=== PATIENT | male | born 1955 | race African-American/Black ===

== ENCOUNTER 2022-06-27 02:35 | Inpatient (IN) | payer OTHER ==
[~2022-06-27] VITALS: Ht 193 cm; Wt 123.8 kg
[2022-06-27 06:27] LABS: BASOPHILS % 0.7 % (0.0-2.0); EOSINOPHILS % 1.3 % (0.0-5.0); HEMOGLOBIN. 10.8 g/dL (14.0-18.0); LYMPHOCYTES % 20.4 % (20.0-50.0); MEAN CORPUSCULAR HEMOGLOBIN 34.3 pg (28.0-32.0); MEAN CORPUSCULAR VOLUME 101.3 fL (80.0-94.0); MEAN PLATELET VOLUME 9.9 fl (7.4-10.4); MONOCYTES % 11.2 % (2.0-8.0); NEUTROPHILS % 66.4 % (40.0-76.0); PLATELET 311 x1000/uL (130-400); RED BLOOD CELL COUNT 3.16 mill/uL (4.7-6.1); RED CELL DISTRIBUTION WIDTH 15.9 % (11.6-14.6)
[2022-06-27 06:37] LABS: PROTHROMBIN TIME 11.1 sec (9.6-11.0)
[2022-06-27] MEDS ORDERED: DESMOPRESSIN ACETATE 4MCG/ML AMP IV ONE (09:45)
[2022-06-27] MEDS ORDERED: DESMOPRESSIN ACETATE 20 MCG in SODIUM CHLORIDE 0.9% 50 ML IV NR ×2 (09:45→16:30)
[2022-06-27 12:00] VITALS: BP 120/74
[2022-06-27] MEDS ORDERED: NITROGLYCERIN 0.4MG TABLET SL SL PRN (13:15)
[2022-06-27] MEDS ORDERED: GUAIFENESIN 200MG/10ML SUGAR FREE UDC PO PRN (13:15)
[2022-06-27] MEDS ORDERED: CLONIDINE 0.1MG TABLET PO PRN (13:15)
[2022-06-27] MEDS ORDERED: ACETAMINOPHEN 325MG TABLET PO PRN ×2 (13:15)
[2022-06-27] MEDS ORDERED: MAGNESIUM/ALUMINUM HYDROXIDE/SIMETHICONE 30ML UDC PO PRN (13:15)
[2022-06-27] MEDS ORDERED: IPRATROPIUM/ALBUTEROL 0.5-3(2.5)MG/3ML NEB NEB PRN (13:15)
[2022-06-27] MEDS ORDERED: TRAMADOL 50MG TABLET PO PRN (13:15)
[2022-06-27] MEDS ORDERED: DOCUSATE SODIUM 100MG CAPSULE PO PRN (13:15)
[2022-06-27] MEDS ORDERED: ZOLPIDEM TARTRATE 5MG TABLET PO PRN (13:15)
[2022-06-27] MEDS ORDERED: DIPHENHYDRAMINE 50MG/ML VIAL IV PRN (13:15)
[2022-06-27] MEDS ORDERED: ONDANSETRON HCL 4MG/2ML INJ IV PRN (13:15)
[2022-06-27 13:26] VITALS: BP 120/74
[2022-06-27] MEDS ORDERED: B12/1TAB MT (13:38)
[2022-06-27] MEDS ORDERED: HYDR-4133 MT (13:38)
[2022-06-27] MEDS ORDERED: ASPI-1497 MT (13:38)
[2022-06-27] MEDS ORDERED: SIMV5TAB58 MT (13:39)
[2022-06-27] MEDS ORDERED: SODIUM POLYSTYRENE SULFONATE 15 G/60 ML BOT PO NR (14:30)
[2022-06-27] MEDS ORDERED: FUROSEMIDE 100MG/10ML VIAL IVP NR (14:30)
[2022-06-27 15:46] LABS: FOLIC ACID (FOLATE) SERUM 18.1 ng/mL (>5.38)
[2022-06-27 16:00] VITALS: BP 119/71
[2022-06-27] MEDS: SEVELAMER CARBONATE 800 MG TABLET PO SCH (17:54)
[2022-06-27 18:00] LABS: CREATINE KINASE 334 IU/L (39-308); CREATINE KINASE MB FRACTION 1.8 ng/mL (0.5-3.6)
[2022-06-27 20:00] VITALS: BP 118/71
[2022-06-27] MEDS ORDERED: NALOXONE HCL 0.4MG/ML VIAL IV PRN (20:00)
[2022-06-27] MEDS: FAMOTIDINE 20MG TABLET PO SCH (21:00)
[2022-06-27] MEDS: METOPROLOL TARTRATE 25MG TABLET PO SCH (21:33)
[2022-06-28] VITALS: BP 120/50
[2022-06-28 01:58] LABS: CREATINE KINASE MB FRACTION 1.3 ng/mL (0.5-3.6)
[2022-06-28 04:00] VITALS: BP 119/77
[2022-06-28 06:31] LABS: BASOPHILS % 0.8 % (0.0-2.0); EOSINOPHILS % 3.1 % (0.0-5.0); HEMATOCRIT. 27.7 % (42.0-52.0); HEMOGLOBIN. 9.5 g/dL (14.0-18.0); LYMPHOCYTES % 28.6 % (20.0-50.0); MEAN CORPUSCULAR HEMOGLOBIN 34.8 pg (28.0-32.0); MEAN CORPUSCULAR VOLUME 101.7 fL (80.0-94.0); MEAN PLATELET VOLUME 9.1 fl (7.4-10.4); MONOCYTES % 12.9 % (2.0-8.0); NEUTROPHILS % 54.6 % (40.0-76.0); PLATELET 247 x1000/uL (130-400); RED BLOOD CELL COUNT 2.73 mill/uL (4.7-6.1); RED CELL DISTRIBUTION WIDTH 15.2 % (11.6-14.6)
[2022-06-28] MEDS ORDERED: THROMBIN (BOVINE) 5000 UNITS/VIAL TOP ONE (06:38)
[2022-06-28] MEDS ORDERED: HEPARIN SODIUM 1,000 UNIT/1ML VIAL IV ONE (06:38)
[2022-06-28] MEDS ORDERED: BACITRACIN 15GM TUBE TOP ONE (06:38)
[2022-06-28] MEDS ORDERED: LIDOCAINE HCL 1% 10 MG/ML 10ML VIAL ONE (06:39)
[2022-06-28] MEDS ORDERED: POLYMYXIN B SULFATE 500000 UNITS/VIAL ONE (06:39)
[2022-06-28] MEDS ORDERED: BUPIVACAINE HCL/PF 0.5% (5MG/ML) 10ML ONE (06:39)
[2022-06-28 06:54] LABS: CHLORIDE 101 mEq/L (98-107)
[2022-06-28 07:05] LABS: HDL CHOLESTEROL 35 mg/dL (40-59); LDL CHOLESTEROL 48 mg/dL (5-100); PHOSPHORUS 7.6 mg/dL (2.5-4.9)
[2022-06-28 08:00] VITALS: BP 123/60
[2022-06-28] MEDS ORDERED: PROPOFOL 200MG/20ML VIAL IV ONE (08:24)
[2022-06-28] MEDS ORDERED: MIDAZOLAM HCL 2 MG/2 ML VIAL ONE ×2 (08:25→09:30)
[2022-06-28] MEDS ORDERED: MORPHINE SULFATE 2 MG/ML CPJ (NOT FOR IM USE) IV PRN (08:45)
[2022-06-28] MEDS ORDERED: LIDOCAINE HCL 2% JELLY 5ML ONE (09:34)
[2022-06-28] MEDS ORDERED: CEFAZOLIN SODIUM 1000MG/VIAL ONE (09:58)
[2022-06-28] MEDS ORDERED: DEXAMETHASONE 4MG/ML 1ML VIAL ONE (09:58)
[2022-06-28] MEDS ORDERED: ONDANSETRON HCL 4MG/2ML INJ ONE (09:58)
[2022-06-28] MEDS ORDERED: ATROPINE SULFATE 0.4MG/ML VIAL IV PRN (10:30)
[2022-06-28] MEDS ORDERED: FENTANYL CITRATE/PF 50MCG/ML 2ML VIAL IV PRN (10:30)
[2022-06-28 12:00] VITALS: BP 158/75
[2022-06-28] MEDS: SEVELAMER CARBONATE 800 MG TABLET PO SCH ×2 (12:33→17:23)
[2022-06-28] MEDS: METOPROLOL TARTRATE 25MG TABLET PO SCH ×2 (12:34→19:56)
[2022-06-28] MEDS ORDERED: SODIUM POLYSTYRENE SULFONATE 15 G/60 ML BOT PO NR (12:45)
[2022-06-28 16:00] VITALS: BP 110/56
[2022-06-28 17:47] LABS: HEPATITIS B SURFACE ANTIGEN NEGATIVE
[2022-06-28] MEDS: FAMOTIDINE 20MG TABLET PO SCH (19:40)
[2022-06-28 20:00] VITALS: BP 116/68
== END 2022-06-28 20:45 | disposition left against medical advice (07) | DRG 314 ==
LOC: ER 02:35 → 8WST 06:00 → EDBD 06:00 → ENRESERV 09:47
PROVIDERS: ADMIT Internal Medicine; ATTEND Internal Medicine
PROC: 0HQEXZZ Repair Left Lower Arm Skin, External Approach (ICD-10-PCS; principal; 2022-06-28)
PROC: 0HBEXZZ Excision of Left Lower Arm Skin, External Approach (ICD-10-PCS; 2022-06-28)
DX: T82.838A Hemorrhage due to vascular prosthetic devices, implants and grafts, initial encounter (principal); N18.6 End stage renal disease; I12.0 Hypertensive chronic kidney disease with stage 5 chronic kidney disease or end stage renal disease; E11.52 Type 2 diabetes mellitus with diabetic peripheral angiopathy with gangrene; Z20.822 Contact with and (suspected) exposure to COVID-19; E11.22 Type 2 diabetes mellitus with diabetic chronic kidney disease; E78.5 Hyperlipidemia, unspecified; E87.5 Hyperkalemia; D63.1 Anemia in chronic kidney disease; D53.9 Nutritional anemia, unspecified; Z53.29 Procedure and treatment not carried out because of patient's decision for other reasons; Z96.653 Presence of artificial knee joint, bilateral; F17.210 Nicotine dependence, cigarettes, uncomplicated; Z99.2 Dependence on renal dialysis; Z79.82 Long term (current) use of aspirin; Z83.3 Family history of diabetes mellitus; Z82.49 Family history of ischemic heart disease and other diseases of the circulatory system; Y84.1 Kidney dialysis as the cause of abnormal reaction of the patient, or of later complication, without mention of misadventure at the time of the procedure; Y83.9 Surgical procedure, unspecified as the cause of abnormal reaction of the patient, or of later complication, without mention of misadventure at the time of the procedure
CPT/HCPCS: 36415; 80048; 80053; 80061; 82550; 82553; 82607; 82746; 82962; 83036; 83540; 83550; 83735; 84100; 84443; 84484; 85025; 86705; 86709; 86803; 86850; 86900; 87340; 87426; 93970; 99291; J0690; J1100; J1644; J1940; J2250; J2405; J2597; J2704; J3490

== ENCOUNTER 2022-07-09 14:00 | Emergency (ER) | payer OTHER ==
[~2022-07-09] VITALS: Ht 188 cm; Wt 128.0 kg
[~2022-07-09 14:00] MED LIST: ASPI-1497 MT; B12/1TAB MT; HYDR-4133 MT; SIMV5TAB58 MT
[2022-07-09 15:38] LABS: BASOPHILS % 0.7 % (0.0-2.0); EOSINOPHILS % 2.7 % (0.0-5.0); HEMATOCRIT. 30.6 % (42.0-52.0); HEMOGLOBIN. 10.6 g/dL (14.0-18.0); MEAN CORPUSCULAR HEMOGLOBIN 34.6 pg (28.0-32.0); MEAN PLATELET VOLUME 9.6 fl (7.4-10.4); MONOCYTES % 12.3 % (2.0-8.0); NEUTROPHILS % 63.3 % (40.0-76.0); PLATELET 282 x1000/uL (130-400); RED BLOOD CELL COUNT 3.06 mill/uL (4.7-6.1); RED CELL DISTRIBUTION WIDTH 16.2 % (11.6-14.6)
[2022-07-09 15:46] LABS: PROTHROMBIN TIME 10.7 sec (9.6-11.0)
[2022-07-09 15:47] LABS: CHLORIDE 99 mEq/L (98-107)
[2022-07-09 23:52] VITALS: BP 117/63
== END 2022-07-10 00:45 | disposition short-term general hospital (02) ==
LOC: ER 14:37
DX: T82.838A Hemorrhage due to vascular prosthetic devices, implants and grafts, initial encounter (principal); L98.498 Non-pressure chronic ulcer of skin of other sites with other specified severity; D64.9 Anemia, unspecified; Y82.8 Other medical devices associated with adverse incidents; I12.0 Hypertensive chronic kidney disease with stage 5 chronic kidney disease or end stage renal disease; N18.6 End stage renal disease; Z99.2 Dependence on renal dialysis; Y92.538 Other ambulatory health services establishments as the place of occurrence of the external cause
CPT/HCPCS: 12001; 36415; 80053; 85025; 86850; 86900; 99285